=== PATIENT | male | born 1990 | race American Indian/Alaskan Native ===

== ENCOUNTER 2020-06-07 11:38 | Emergency (ER) | payer SELFPAY ==
[2020-06-07 11:45] VITALS: BP 131/84
--- NOTE | 2020-06-07 12:31 | Emergency Department Report ---
ED ENT HPI - General Chief complaint: Earache Stated complaint: EAR PAIN SOMETHING IS IN EAR Time Seen by Provider: 06/07/20 12:12 Source: patient Mode of arrival: Ambulatory Limitations: No Limitations - History of Present Illness Initial comments: 30-year-old male presents emerged department complaining of pain to the right ear suspicion of having a foreign body of an unknown etiology in the ear would like evaluated reports no dizziness, no vomiting, no fever, chills, sweats, no bleeding. MD complaint: ear pain -: Gradual Location: R ear Severity: mild Quality: aching, dull Consistency: constant Associated Symptoms: denies: gum swelling, pain with swallowing, sore throat, tinnitus, rhinorrhea - Related Data Previous Rx's Medication Instructions Recorded Last Taken Type Promethazine /Codeine 5 ml PO Q6H PRN #90 ml 03/31/13 Unknown Rx [Phenergan/Codeine 6.25-10 mg/5 ml] Neomy/Polymyx B/Hc (Otic) Soln 4 drops AD TID #1 bottle 06/07/20 Unknown Rx [Cortisporin (Otic) Soln] Allergies Allergy/AdvReac Type Severity Reaction Status Date / Time No Known Allergies Allergy Unverified 03/31/13 19:28 ED Dental HPI - General Chief complaint: Earache Stated complaint: EAR PAIN SOMETHING IS IN EAR Time Seen by Provider: 06/07/20 12:12 Source: patient Mode of arrival: Ambulatory Limitations: No Limitations - Related Data Previous Rx's Medication Instructions Recorded Last Taken Type Promethazine /Codeine 5 ml PO Q6H PRN #90 ml 03/31/13 Unknown Rx [Phenergan/Codeine 6.25-10 mg/5 ml] Neomy/Polymyx B/Hc (Otic) Soln 4 drops AD TID #1 bottle 06/07/20 Unknown Rx [Cortisporin (Otic) Soln] Allergies Allergy/AdvReac Type Severity Reaction Status Date / Time No Known Allergies Allergy Unverified 03/31/13 19:28 ED Review of Systems ROS: Stated complaint: EAR PAIN SOMETHING IS IN EAR Other details as noted in HPI Comment: All other systems reviewed and negative ED Past Medical Hx - Past Medical History Previous Medical History?: No - Surgical History Past Surgical History?: No - Social History Smoking Status: Current Every Day Smoker Substance Use Type: Alcohol - Medications Home Medications: Home Medications Medication Instructions Recorded Confirmed Last Taken Type Promethazine /Codeine 5 ml PO Q6H PRN #90 ml 03/31/13 Unknown Rx [Phenergan/Codeine 6.25-10 mg/5 ml] Neomy/Polymyx B/Hc (Otic) Soln 4 drops AD TID #1 bottle 06/07/20 Unknown Rx [Cortisporin (Otic) Soln] ED Physical Exam - General Limitations: No Limitations General appearance: alert, in no apparent distress - Head Head exam: Present: atraumatic, normocephalic - Eye Eye exam: Present: normal appearance - ENT ENT exam: Present: mucous membranes moist, other (Green claylike foreign body substance into the right ear eardrum appears to be intact with small effusion. No bleeding at present) - Neck Neck exam: Present: normal inspection - Respiratory Respiratory exam: Present: normal lung sounds bilaterally. Absent: respiratory distress - Cardiovascular Cardiovascular Exam: Present: regular rate, normal rhythm. Absent: systolic murmur, diastolic murmur, rubs, gallop - GI/Abdominal GI/Abdominal exam: Present: soft, normal bowel sounds - Rectal Rectal exam: Present: deferred - Extremities Exam Extremities exam: Present: normal inspection - Back Exam Back exam: Present: normal inspection - Neurological Exam Neurological exam: Present: alert, oriented X3 - Psychiatric Psychiatric exam: Present: normal affect, normal mood - Skin Skin exam: Present: warm, dry, intact, normal color. Absent: rash ED Course Vital Signs 06/07/20 11:42 Temperature 97.6 F Pulse Rate 68 Respiratory 20 Rate Blood Pressure 131/84 O2 Sat by Pulse 100 Oximetry - Foreign Body Removal Ear Location: ear canal (R) Foreign Body Suspected: other If Insect Suspected: ear canal inspected-intac Foreign Body Removed: yes Foreign Body Removal Technique: irrigation Tympanic Membrane Intact: Yes Patient Tolerated Procedure: well Complications: bleeding (Scant bleeding to the floor of the ear canal where the foreign substance was removed) Critical care attestation.: If time is entered above; I have spent that time in minutes in the direct care of this critically ill patient, excluding procedure time. ED Disposition Clinical Impression: Ear foreign body Disposition: DC- TO HOME OR SELFCARE Is pt being admited?: No Does the pt Need Aspirin: No Condition: Stable Instructions: Ear Foreign Body Prescriptions: Neomy/Polymyx B/Hc (Otic) Soln [Cortisporin (Otic) Soln] 4 drops AD TID #1 bottle Referrals: [facility] [Provider Group] - 3-5 Days
== END 2020-06-07 12:38 | disposition home or self-care (01) ==
LOC: ED 11:38
DX: T16.1XXA Foreign body in right ear, initial encounter (principal); F17.200 Nicotine dependence, unspecified, uncomplicated; Z79.899 Other long term (current) drug therapy; W45.8XXA Other foreign body or object entering through skin, initial encounter; Y93.89 Activity, other specified; Y92.89 Other specified places as the place of occurrence of the external cause; Y99.8 Other external cause status
CPT/HCPCS: 99281

== ENCOUNTER 2020-07-20 18:28 | Emergency (ER) | payer SELFPAY ==
[2020-07-20 18:50] VITALS: BP 127/86
--- NOTE | 2020-07-20 19:24 | Emergency Department Report ---
ED General Adult HPI - General Chief complaint: Abdominal Pain Stated complaint: RIGHT SIDE PAIN Time Seen by Provider: 07/20/20 19:22 Source: patient Mode of arrival: Ambulatory Limitations: No Limitations - History of Present Illness Initial comments: 30-year-old -Turk[place] male patient presents with complaints of right flank pain intermittently x2 months, worsening over the past few days. He reports a history of right renal stone and states he has followed up with urology concerning this. He denies any dysuria/hematuria, urinary frequency, nausea/vomiting, constipation/diarrhea, hematochezia/melena, or fever/chills/sweats. No shortness of breath or chest pain per patient. He denies any other past medical history and has not tried any OTC medication for his symptoms. He he also denies any recent heavy lifting or numbness/tingling/ weakness in his limbs or difficulty with ambulation -: Gradual - Related Data Previous Rx's Medication Instructions Recorded Last Taken Type Promethazine /Codeine 5 ml PO Q6H PRN #90 ml 03/31/13 Unknown Rx [Phenergan/Codeine 6.25-10 mg/5 ml] Neomy/Polymyx B/Hc (Otic) Soln 4 drops AD TID #1 bottle 06/07/20 Unknown Rx [Cortisporin (Otic) Soln] Ibuprofen [Motrin 800 MG tab] 800 mg PO Q8HR PRN #20 tablet 07/20/20 Unknown Rx Allergies Allergy/AdvReac Type Severity Reaction Status Date / Time No Known Allergies Allergy Unverified 03/31/13 19:28 ED Review of Systems ROS: Stated complaint: RIGHT SIDE PAIN Other details as noted in HPI Constitutional: denies: chills, diaphoresis, fever, malaise, weakness Respiratory: denies: cough, shortness of breath Cardiovascular: denies: chest pain Gastrointestinal: abdominal pain. denies: nausea, vomiting, diarrhea, constipation, hematemesis, melena, hematochezia Genitourinary: denies: urgency, dysuria, frequency, hematuria Musculoskeletal: as per HPI ED Past Medical Hx - Past Medical History Previous Medical History?: Yes Hx Kidney Stones: Yes - Surgical History Past Surgical History?: No - Social History Smoking Status: Current Every Day Smoker Substance Use Type: Alcohol - Medications Home Medications: Home Medications Medication Instructions Recorded Confirmed Last Taken Type Promethazine /Codeine 5 ml PO Q6H PRN #90 ml 03/31/13 Unknown Rx [Phenergan/Codeine 6.25-10 mg/5 ml] Neomy/Polymyx B/Hc (Otic) Soln 4 drops AD TID #1 bottle 06/07/20 Unknown Rx [Cortisporin (Otic) Soln] Ibuprofen [Motrin 800 MG tab] 800 mg PO Q8HR PRN #20 tablet 07/20/20 Unknown Rx ED Physical Exam - General Limitations: No Limitations General appearance: alert, in no apparent distress - Head Head exam: Present: atraumatic, normocephalic - Eye Eye exam: Present: normal appearance. Absent: scleral icterus - Respiratory Respiratory exam: Present: normal lung sounds bilaterally. Absent: respiratory distress - Cardiovascular Cardiovascular Exam: Present: regular rate, normal rhythm - GI/Abdominal GI/Abdominal exam: Present: soft, tenderness (Mild right sided tenderness to palpation on), normal bowel sounds. Absent: distended, guarding, rebound, rigid - Extremities Exam Extremities exam: Present: normal inspection - Back Exam Back exam: Present: normal inspection, full ROM, CVA tenderness (R) (Mild). Abs ent: paraspinal tenderness, vertebral tenderness - Neurological Exam Neurological exam: Present: alert, oriented X3, normal gait. Absent: motor sensory deficit - Expanded Neurological Exam Expanded Sensory exam: Lower Extremity Light Touch: Normal Motor strength exam: RLE: 5, LLE: 5 - Psychiatric Psychiatric exam: Present: normal affect, normal mood - Skin Skin exam: Present: warm, dry, intact, normal color. Absent: rash ED Course Vital Signs 07/20/20 18:48 Temperature 99.7 F H Pulse Rate 83 Respiratory 20 Rate Blood Pressure 127/86 O2 Sat by Pulse 96 Oximetry ED Medical Decision Making - Lab Data Result diagrams: 07/20/20 19:32 07/20/20 19:32 Lab Results 07/20/20 07/20/20 07/20/20 Range/Units 19:32 19:32 19:47 WBC 7.1 (4.5-11.0) K/mm3 RBC 5.06 H (3.65-5.03) M/mm3 Hgb 14.0 (11.8-15.2) gm/dl Hct 40.9 (35.5-45.6) % MCV 81 L (84-94) fl MCH 28 (28-32) pg MCHC 34 (32-34) % RDW 12.8 L (13.2-15.2) % Plt Count 366 (140-440) K/mm3 Lymph % (Auto) 22.2 (13.4-35.0) % [place] % (Auto) 8.9 H (0.0-7.3) % Eos % (Auto) 3.5 (0.0-4.3) % Baso % (Auto) 0.9 (0.0-1.8) % Lymph # (Auto) 1.6 (1.2-5.4) K/mm3 [place]yman # (Auto) 0.6 (0.0-0.8) K/mm3 Eos # (Auto) 0.3 (0.0-0.4) K/mm3 Baso # (Auto) 0.1 (0.0-0.1) K/mm3 Seg Neutrophils % 64.5 (40.0-70.0) % Seg Neutrophils # 4.6 (1.8-7.7) K/mm3 Sodium 137 (137-145) mmol/L Potassium 4.8 (3.6-5.0) mmol/L Chloride 99.6 (98-107) mmol/L Carbon Dioxide 31 H (22-30) mmol/L Anion Gap 40 mmol/L BUN 8 L (9-20) mg/dL Creatinine 1.0 (0.8-1.3) mg/dL Estimated GFR > 60 ml/min BUN/Creatinine Ratio 8 % Glucose 86 (75-100) mg/dL Calcium 9.3 (8.4-10.2) mg/dL Total Bilirubin 0.30 (0.1-1.2) mg/dL AST 18 (5-40) units/L ALT 15 (7-56) units/L Alkaline Phosphatase 42 (35-129) units/L Total Protein 7.9 (6.3-8.2) g/dL Albumin 4.5 (3.9-5) g/dL Albumin/Globulin Ratio 1.3 % Lipase 19 (13-60) units/L Urine Color Yellow (Yellow) Urine Turbidity Clear (Clear) Urine pH 7.0 (5.0-7.0) Ur Specific [place] 1.018 (1.003-1.030) Urine Protein <15 mg/dl (Negative) mg/dL Urine Glucose (UA) Neg (Negative) mg/dL Urine Ketones Neg (Negative) mg/dL Urine Blood Neg (Negative) Urine Nitrite Neg (Negative) Urine Bilirubin Neg (Negative) Urine Urobilinogen < 2.0 (<2.0) mg/dL Ur Leukocyte Esterase Neg (Negative) Urine WBC (Auto) < 1.0 (0.0-6.0) /HPF Urine RBC (Auto) 1.0 (0.0-6.0) /HPF Urine Mucus Few /HPF - Radiology Data Radiology results: report reviewed CT abdomen pelvis wo con INDICATION: R flank pain/R LLQ pain, hx of kidney stones. COMPARISON: None TECHNIQUE: Abdominal and pelvic CT exam performed. All CT scans at this location are performed using CT dose reduction for ALARA by means of automated exposure control. FINDINGS: CT ABDOMEN and PELVIS: Lung Bases: No significant abnormality. Liver: No significant abnormality. Biliary: No significant abnormality. Spleen: No significant abnormality. Pancreas: No significant abnormality. Adrenals: No significant abnormality. Kidneys: Punctate right interpolar nodular to renal stone. No hydronephrosis. Lymphatics: No lymphadenopathy. Vasculature: No significant abnormality. Bowel: No significant abnormality. Normal appendix. Pelvis: No significant abnormality. Osseous Structures: No aggressive osseous lesion. Additional Findings: None IMPRESSION: 1. No acute abnormality of the abdomen or pelvis. 2. Punctate nonobstructing right renal stone. - Medical Decision Making 30-year-old -Turk[place] male patient presents with complaints of right flank pain intermittently x2 months, worsening over the past few days. He reports a history of right renal stone and states he has followed up with urology concerning this. He denies any dysuria/hematuria, urinary frequency, nausea/vomiting, constipation/diarrhea, hematochezia/melena, or fever/chills/sweats. No shortness of breath or chest pain per patient. He denies any other past medical history and has not tried any OTC medication for his symptoms. He he also denies any recent heavy lifting or numbness/tingling/weakness in his limbs or difficulty with ambulation Anion gap noted to be 40 on labs, however this was manually calculated at 6.5. Mild right CVA tenderness and right-sided tenderness on exam. CT abdomen shows renal stone without obstruction. No other acute abnormalities noted on CT. CBC, CMP, and UA are without significant abnormalities. Recommend patient continues to follow-up with urology. We will try ibuprofen as needed for pain for now. Discussed signs and symptoms that should prompt immediate return to the emergency department in detail with patient who verbalizes understanding. He is well-appearing, his vitals are normal, he is stable for discharge home. Critical care attestation.: If time is entered above; I have spent that time in minutes in the direct care of this critically ill patient, excluding procedure time. ED Disposition Clinical Impression: Flank pain, Right kidney stone Disposition: TO HOME OR SELFCARE Is pt being admited?: No Condition: Stable Instructions: Flank Pain, Adult, [id number], Kidney Stones, [id number], Renal Colic, [id number] Additional Instructions: Please follow-up with your urologist within 1 week. Prescriptions: Ibuprofen [Motrin 800 MG tab] 800 mg PO Q8HR PRN #20 tablet PRN Reason: pain Referrals: PRIMARY CARE, [Primary Care Provider] - 3-5 Days [facility] [Provider Group] - 3-5 Days
--- NOTE | 2020-07-20 19:58 | Cat Scan Report ---
CT abdomen pelvis wo con INDICATION: R flank pain/R LLQ pain, hx of kidney stones. COMPARISON: None TECHNIQUE: Abdominal and pelvic CT exam performed. All CT scans at this location are performed using CT dose reduction for ALARA by means of automated exposure control. FINDINGS: CT ABDOMEN and PELVIS: Lung Bases: No significant abnormality. Liver: No significant abnormality. Biliary: No significant abnormality. Spleen: No significant abnormality. Pancreas: No significant abnormality. Adrenals: No significant abnormality. Kidneys: Punctate right interpolar nodular to renal stone. No hydronephrosis. Lymphatics: No lymphadenopathy. Vasculature: No significant abnormality. Bowel: No significant abnormality. Normal appendix. Pelvis: No significant abnormality. Osseous Structures: No aggressive osseous lesion. Additional Findings: None IMPRESSION: 1. No acute abnormality of the abdomen or pelvis. 2. Punctate nonobstructing right renal stone. Signer Name: Chuy Melton MD Signed: 07/20/2020 7:53 PM Workstation Name: [id number]
[2020-07-20 20:24] LABS: Basophils # (Auto) 0.1 K/mm3 (0.0-0.1); Basophils % (Auto) 0.9 % (0.0-1.8); Eosinophils # (Auto) 0.3 K/mm3 (0.0-0.4); Eosinophils % (Auto) 3.5 % (0.0-4.3); Hematocrit 40.9 % (35.5-45.6); Lymphocytes # (Auto) 1.6 K/mm3 (1.2-5.4); Lymphocytes % (Auto) 22.2 % (13.4-35.0); Mean Corpuscular HGB Conc 34 % (32-34); Mean Corpuscular Volume 81 fl (84-94); Monocytes # (Auto) 0.6 K/mm3 (0.0-0.8); Monocytes % (Auto) 8.9 % (0.0-7.3); Platelet Count 366 K/mm3 (140-440); Red Blood Count 5.06 M/mm3 (3.65-5.03); Red Cell Distribution Width 12.8 % (13.2-15.2)
[2020-07-20 20:28] LABS: Alanine Aminotransferase 15 units/L (7-56); Albumin 4.5 g/dL (3.9-5); BUN/Creatinine Ratio 8; Blood Urea Nitrogen 8 mg/dL (9-20); Calcium 9.3 mg/dL (8.4-10.2); Hemolysis Index 5
[2020-07-20 20:32] LABS: Bilirubin,Urine NEG (Negative); Blood,Urine NEG (Negative); Color,Urine Yellow (Yellow); Mucus,Urine FEW /HPF; Protein,Urine <15 mg/dL mg/dL (Negative); Urobilinogen,Urine < 2.0 mg/dL (<2.0); WBC,Urine < 1.0 /HPF (0.0-6.0)
== END 2020-07-20 21:59 | disposition home or self-care (01) ==
LOC: ED 18:28
DX: N20.0 Calculus of kidney (principal); R10.9 Unspecified abdominal pain; F17.200 Nicotine dependence, unspecified, uncomplicated; Z79.899 Other long term (current) drug therapy
CPT/HCPCS: 36415; 74176; 80053; 81001; 83690; 85025

== ENCOUNTER 2020-12-31 20:39 | Emergency (ER) | payer SELFPAY ==
[2020-12-31 21:12] VITALS: BP 133/80
--- NOTE | 2020-12-31 21:21 | Emergency Department Report ---
ED Back Pain/Injury HPI - General Chief Complaint: Back Pain/Injury Stated Complaint: BACK STIFNESS Time Seen by Provider: 12/31/20 21:18 Source: patient Limitations: No Limitations - History of Present Illness MD Complaint: back pain, back injury -: Gradual, days(s) (14) Place: other (working out and developed a very stiff back) Radiation: none Severity: mild, moderate Quality: dull, aching Consistency: constant Improves With: none Worsens With: none - Related Data Previous Rx's Medication Instructions Recorded Last Taken Type Promethazine /Codeine 5 ml PO Q6H PRN #90 ml 03/31/13 Unknown Rx [Phenergan/Codeine 6.25-10 mg/5 ml] Neomy/Polymyx B/Hc (Otic) Soln 4 drops AD TID #1 bottle 06/07/20 Unknown Rx [Cortisporin (Otic) Soln] Ibuprofen [Motrin 800 MG tab] 800 mg PO Q8HR PRN #20 tablet 07/20/20 Unknown Rx Ketorolac [Toradol] 10 mg PO Q6H PRN #15 tablet 12/31/20 Unknown Rx methOCARBAMOL [Robaxin] 750 mg PO Q8H PRN #21 tablet 12/31/20 Unknown Rx Allergies Allergy/AdvReac Type Severity Reaction Status Date / Time No Known Allergies Allergy Unverified 03/31/13 19:28 ED Review of Systems ROS: Stated complaint: BACK STIFNESS Other details as noted in HPI Comment: All other systems reviewed and negative ED Past Medical Hx - Past Medical History Previous Medical History?: Yes Hx Kidney Stones: Yes - Surgical History Past Surgical History?: No - Social History Smoking Status: Current Every Day Smoker Substance Use Type: Alcohol - Medications Home Medications: Home Medications Medication Instructions Recorded Confirmed Last Taken Type Promethazine /Codeine 5 ml PO Q6H PRN #90 ml 03/31/13 Unknown Rx [Phenergan/Codeine 6.25-10 mg/5 ml] Neomy/Polymyx B/Hc (Otic) Soln 4 drops AD TID #1 bottle 06/07/20 Unknown Rx [Cortisporin (Otic) Soln] Ibuprofen [Motrin 800 MG tab] 800 mg PO Q8HR PRN #20 tablet 07/20/20 Unknown Rx Ketorolac [Toradol] 10 mg PO Q6H PRN #15 tablet 12/31/20 Unknown Rx methOCARBAMOL [Robaxin] 750 mg PO Q8H PRN #21 tablet 12/31/20 Unknown Rx ED Physical Exam - General Limitations: No Limitations General appearance: alert, in no apparent distress - Head Head exam: Present: atraumatic, normocephalic - Eye Eye exam: Present: normal appearance - ENT ENT exam: Present: mucous membranes moist - Neck Neck exam: Present: normal inspection - Respiratory Respiratory exam: Present: normal lung sounds bilaterally. Absent: respiratory distress - Cardiovascular Cardiovascular Exam: Present: regular rate, normal rhythm. Absent: systolic murmur, diastolic murmur, rubs, gallop - GI/Abdominal GI/Abdominal exam: Present: soft, normal bowel sounds - Rectal Rectal exam: Present: deferred - Extremities Exam Extremities exam: Present: normal inspection, full ROM, normal capillary refill - Back Exam Back exam: Present: normal inspection. Absent: CVA tenderness (R), CVA tenderness (L) - Neurological Exam Neurological exam: Present: alert, oriented X3, CN II-XII intact - Psychiatric Psychiatric exam: Present: normal affect, normal mood - Skin Skin exam: Present: warm, dry, intact, normal color. Absent: rash ED Course Vital Signs 12/31/20 21:11 Temperature 98.3 F Pulse Rate 89 Respiratory 16 Rate Blood Pressure 133/80 O2 Sat by Pulse 100 Oximetry Critical care attestation.: If time is entered above; I have spent that time in minutes in the direct care of this critically ill patient, excluding procedure time. ED Disposition Clinical Impression: Lumbar paraspinal muscle spasm Disposition: 01 HOME / SELF CARE / HOMELESS Is pt being admited?: No Does the pt Need Aspirin: No Condition: Stable Instructions: Muscle Cramps and Spasms, [id number], Thoracic Strain, Back Injury Prevention Prescriptions: methOCARBAMOL [Robaxin] 750 mg PO Q8H PRN #21 tablet PRN Reason: Spasms Ketorolac [Toradol] 10 mg PO Q6H PRN #15 tablet PRN Reason: Pain Referrals: BIANCA BUENO MD [Staff Physician] - 3-5 Days
== END 2020-12-31 21:32 | disposition home or self-care (01) ==
LOC: ED 20:39
DX: M62.830 Muscle spasm of back (principal); M54.50 Low back pain, unspecified; F17.200 Nicotine dependence, unspecified, uncomplicated; Z72.89 Other problems related to lifestyle; Z87.442 Personal history of urinary calculi; Z79.899 Other long term (current) drug therapy
CPT/HCPCS: 99281

== ENCOUNTER 2021-11-07 21:50 | Emergency (ER) | payer SELFPAY ==
--- NOTE | 2021-11-07 23:13 | XRay Report ---
Lumbar spine 3 views INDICATION: Back pain FINDINGS: Alignment appears normal. No compression fractures seen. Sacrum and sacroiliac joints appea r normal. Thoracic spine 4 views INDICATION: Back pain FINDINGS: Pedicles appear normal throughout. No compression fractures seen. No subluxation. Facets ar e well aligned. Signer Name: Ian Burrell MD Signed: 11/07/2021 11:08 PM Workstation Name: [id number]
--- NOTE | 2021-11-07 23:13 | XRay Report ---
Lumbar spine 3 views INDICATION: Back pain FINDINGS: Alignment appears normal. No compression fractures seen. Sacrum and sacroiliac joints appea r normal. Thoracic spine 4 views INDICATION: Back pain FINDINGS: Pedicles appear normal throughout. No compression fractures seen. No subluxation. Facets ar e well aligned. Signer Name: Ian Burrell MD Signed: 11/07/2021 11:08 PM Workstation Name: [id number]
[2021-11-08] MEDS ORDERED: oxyCODONE /ACETAMINOPHEN 5-325MG TAB PO ONE (02:33)
--- NOTE | 2021-11-08 02:49 | Emergency Department Report ---
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 waxing and waning pain to the mid back but spastic type nature worsening with palpation and range of motion and continuing symptoms for the last for 45 to 60 days Complaint: back pain -: Gradual Place: home Radiation: none Severity: mild - Related Data Previous Rx's Medication Instructions Recorded Last Taken Type Promethazine /Codeine 5 ml PO Q6H PRN #90 ml 03/31/13 Unknown Rx [Phenergan/Codeine 6.25-10 mg/5 ml] Neomy/Polymyx B/Hc (Otic) Soln 4 drops AD TID #1 bottle 06/07/20 Unknown Rx [Cortisporin (Otic) Soln] Ibuprofen [Motrin 800 MG tab] 800 mg PO Q8HR PRN #20 tablet 07/20/20 Unknown Rx Ketorolac [Toradol] 10 mg PO Q6H PRN #15 tablet 12/31/20 Unknown Rx methOCARBAMOL [Robaxin] 750 mg PO Q8H PRN #21 tablet 12/31/20 Unknown Rx Ketorolac [Toradol] 10 mg PO Q6H PRN #15 tablet 11/08/21 Unknown Rx methOCARBAMOL [Robaxin] 750 mg PO Q8H PRN #21 tablet 11/08/21 Unknown Rx Allergies Allergy/AdvReac Type Severity Reaction Status Date / Time No Known Allergies Allergy Unverified 03/31/13 19:28 ED Review of Systems ROS: Stated complaint: BACK PAIN Other details as noted in HPI Comment: All other systems reviewed and negative ED Past Medical Hx - Past Medical History Previous Medical History?: Yes Hx Kidney Stones: Yes - Social History Smoking Status: Unknown if ever smoked - Medications Home Medications: Home Medications Medication Instructions Recorded Confirmed Last Taken Type Promethazine /Codeine 5 ml PO Q6H PRN #90 ml 03/31/13 Unknown Rx [Phenergan/Codeine 6.25-10 mg/5 ml] Neomy/Polymyx B/Hc (Otic) Soln 4 drops AD TID #1 bottle 06/07/20 Unknown Rx [Cortisporin (Otic) Soln] Ibuprofen [Motrin 800 MG tab] 800 mg PO Q8HR PRN #20 tablet 07/20/20 Unknown Rx Ketorolac [Toradol] 10 mg PO Q6H PRN #15 tablet 12/31/20 Unknown Rx methOCARBAMOL [Robaxin] 750 mg PO Q8H PRN #21 tablet 12/31/20 Unknown Rx Ketorolac [Toradol] 10 mg PO Q6H PRN #15 tablet 11/08/21 Unknown Rx methOCARBAMOL [Robaxin] 750 mg PO Q8H PRN #21 tablet 11/08/21 Unknown Rx ED Physical Exam - General Limitations: No Limitations General appearance: alert, in no apparent distress - Head Head exam: Present: atraumatic, normocephalic - Eye Eye exam: Present: normal appearance, PERRL, EOMI Pupils: Present: normal accommodation - ENT ENT exam: Present: normal exam, normal orophraynx, mucous membranes moist - Neck Neck exam: Present: normal inspection - Respiratory Respiratory exam: Present: normal lung sounds bilaterally. Absent: respiratory distress - Cardiovascular Cardiovascular Exam: Present: regular rate, normal rhythm. Absent: systolic murmur, diastolic murmur, rubs, gallop - GI/Abdominal GI/Abdominal exam: Present: soft, normal bowel sounds - Rectal Rectal exam: Present: deferred - Extremities Exam Extremities exam: Present: normal inspection - Back Exam Back exam: Present: normal inspection, muscle spasm, paraspinal tenderness. Absent: CVA tenderness (R), CVA tenderness (L), rash noted - Neurological Exam Neurological exam: Present: alert, oriented X3 - Psychiatric Psychiatric exam: Present: normal affect, normal mood - Skin Skin exam: Present: warm, dry, intact, normal color. Absent: rash ED Course Vital Signs 11/07/21 22:34 Temperature 98.4 F Pulse Rate 60 Respiratory 16 Rate Blood Pressure 137/63 Blood Pressure 137/63 [Right] O2 Sat by Pulse 100 Oximetry Critical care attestation.: If time is entered above; I have spent that time in minutes in the direct care of this critically ill patient, excluding procedure time. ED Disposition Clinical Impression: Back pain Disposition: HOME / SELF CARE / HOMELESS Is pt being admited?: No Does the pt Need Aspirin: No Condition: Stable Instructions: What You Need to Know About Chronic Back Pain, Back Injury Prevention, Acute Back Pain, Adult Prescriptions: methOCARBAMOL [Robaxin] 750 mg PO Q8H PRN #21 tablet PRN Reason: Spasms Ketorolac [Toradol] 10 mg PO Q6H PRN #15 tablet PRN Reason: Pain Referrals: [facility] [Provider Group] - 3-5 Days
[2021-11-08 03:49] VITALS: BP 132/76
== END 2021-11-08 03:49 | disposition home or self-care (01) ==
LOC: ED 21:50
DX: M54.6 Pain in thoracic spine (principal); Z87.442 Personal history of urinary calculi; Z79.899 Other long term (current) drug therapy
CPT/HCPCS: 72070; 72100; 99283